=== PATIENT | female | born 1955 | race African-American/Black ===

== ENCOUNTER 2024-08-08 09:32 | Emergency (ER) | payer SELFPAY ==
[2024-08-08 09:39] VITALS: BP 134/80; PULSE 95; RESP 18; TEMP 98.2; BMI 23.1
[2024-08-08] MEDS ORDERED: LIDOCAINE 4% PATCH TP ONE (10:37)
[2024-08-08] MEDS ORDERED: ACETAMINOPHEN 500 MG TABLET (FP) ONE (10:37)
[2024-08-08] MEDS: LIDOCAINE 4% PATCH TP ONE (10:56)
[2024-08-08] MEDS: ACETAMINOPHEN 500 MG TABLET (FP) PO ONE (10:57)
[2024-08-08] MEDS ORDERED: LIDOCAINE 2.5%/PRILOCAINE 2.5% (5 Gram/TUBE) TP ONE (14:01)
[2024-08-08] MEDS ORDERED: LIDOCAINE PATCH REMOVAL MC ONE (22:00)
== END 2024-08-08 14:10 | disposition home or self-care (01) ==
LOC: JERFT 09:32
DX: S83.91XA Sprain of unspecified site of right knee, initial encounter (principal); X50.1XXA Overexertion from prolonged static or awkward postures, initial encounter; Y93.01 Activity, walking, marching and hiking
CPT/HCPCS: 73562-TC-RT-FY; 99283-25